=== PATIENT | female | born 1985 | race African-American/Black ===

== ENCOUNTER 2017-11-30 15:13 | Emergency (ER) | payer MEDICAID, OTHER ==
[~2017-11-30] VITALS: Ht 160 cm; Wt 65.8 kg
[2017-11-30] MEDS ORDERED: OSELTAMIVIR PHOSPHATE 75 MG CAPSULE PO ONE (16:00)
--- NOTE | 2017-11-30 16:04 | NUR ---
Pending flu swab results still, this auto service writer personally checked the flu swab in the lab specimen bin & entered the information in the specimen logbook. Patient discharged to home in stable conditon. Written and verbal after care instructions given to patient. Patient verbalizes understanding of instructions.
[2017-11-30] MEDS ORDERED: OSELTAMIVIR PHOSPHATE 75 MG CAPSULE ONE (16:10)
== END 2017-11-30 16:09 | disposition home or self-care (01) ==
LOC: ER 15:14
DX: J11.1 Influenza due to unidentified influenza virus with other respiratory manifestations (principal)
CPT/HCPCS: 87400; 99284; A4663